=== PATIENT | male | born 2000 ===

== ENCOUNTER 2025-05-29 13:37 | Outpatient (AMB) | payer MEDICARE, MEDICAID, SELFPAY ==
--- NOTE | 2025-05-29 13:40 | A.OFFPC_ITS ---
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 Accompanied by: Self / Same As Patient Allergies No Known Allergies Allergy (Verified 05/29/25 13:55) Tobacco use date assessed: 05/29/25 Dental Screening Dental Screen Date: 05/29/25 Did you have a dental visit in the last 12 months?: No Did you have a dental problem in the last 6 months where you did not have access to dental care?: No Was dental information given to patient?: No HPI collections analyst medication review HPI Details Previous PCP: Exercise Physiologist Last visit: 3-4 years ago Last PE: same Specialist:He was seeing a counselor at [facility], no other specialist OBGYN:n/a Past medical history: Autism, OCD, social anxiety disorder, ADHD Medications: Sertraline 100 mg 1-1/2 tabs daily Family HX: diabetes maternal and paternal grand parents and mother, Graves disease mother and maternal grandmother, maternal grandmother breast cancer x3, grandmothers twin sister has breast cancer, Autism patient and younger brother has autism. 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 Accompanied by his mother. He was previously seeing a counselor at [facility], but the case was closed a few months ago. He is currently taking sertraline, which was continued by the counseling center after he stopped seeing his counselor. The patient reports having a cold for about a week, with symptoms starting around May 24. His current symptoms include an annoying, slightly itchy throat and some upper airway congestion, which he initially treated with DayQuil. The patient reports a family history of diabetes affecting his maternal and paternal grandmothers. There is also a family history of thyroid disease, including Graves' disease in his mother and thyroid cancer in an aunt. Other notable family history includes breast cancer in his maternal grandmother, prostate cancer and colon cancer in his paternal grandfather, and autism, which affects his younger brother and cousins. Health Maintenance - Recommended fasting blood work to asse ss kidney function, liver function, and cholesterol levels. - Counseled on reducing salt intake to m anage blood pressure. - Advised increasing daily water intake from 3 bottles to a minimum of 6 to 8 bottles. - Plan for a complete physical exam at he follow-up visit in seven weeks. Social History - The patient drinks one medium coffee f our days per week on work days. - He typically consumes three bottles of water per day. - The patient's mother is present and in volved in his healthcare. Results [facility] Medical History (Updated 06/01/25 @ 14:08 by CHITRA Lo) Social anxiety disorder OCD (obsessive compulsive disorder) ADHD Autism Family History (Updated 06/01/25 @ 13:53 by CHITRA Lo) Mother Graves disease Maternal Grandmother Breast cancer in situ Diabetes mellitus Graves disease Brother Autism Paternal Grandmother Diabetes mellitus Maternal Aunt Thyroid cancer Paternal Grandfather Prostate cancer Family/Other Autism Social History Alcohol intake: never Patient Tobacco Use Status: Never used Tobacco e-Cigarette/Vaping Use: Never Used Current occupational status: employed Cognitive needs: No Hearing needs: No Vision needs: No Questionnaire PHQ-9 Over the last 2 weeks, how often have you been bothered by any of the following problems? 1. Little interest or pleasure in doing things: not at all 2. Feeling down, depressed, or hopeless: not at all 3. Trouble falling or staying asleep, or sleeping too much: not at all 4. Feeling tired or having little energy: several days 5. Poor appetite or overeating: several days 6. Feeling bad about yourself - or that you are a failure or have let yourself or your family down: not at all 7. Trouble concentrating on things, such as reading the newspaper or watching television: not at all 8. Moving or speaking so slowly that other people could have noticed. Or the opposite - being so fidgety or restless that you have been moving around a lot more than usual: not at all 9. Thoughts that you would be better off or of hurting yourself in some way: not at all Total score: 2 Depression Screening Interpretation: Negative Depression Screening Done: Yes 10033 - PHQ-9 Billing: Yes Source: Developed by Drs. Robert Ramirez, Amira Franklin, Valentin Chávez and colleagues, with an educational brianna from [employer]. Thrive Questionnaire I am a: Patient What is your living situation today?: I have a steady place to live Within the past 12 months, did the food you bought not last and you didn't have the money to get more?: I choose not to answer this question Within the past 12 months, did you worry whether your food would run out before you got money to buy more?: Sometimes True Do you have trouble paying for medicines?: No Do you have trouble getting transportation to medical appointments?: Yes Do you have trouble paying your heating and electricity bill?: I choose not to answer this question Do you have trouble taking care of your child, family member or friend?: No Do you have trouble with day-to-day activities such as bathing, preparing meals, shopping, managing finances, etc.?: No Are you currently unemployed and looking for a job?: Yes Are you interested in more education?: No Please select the resources that you would like help with: None Currently or been in a relationship where the following occur: No concerns reported THRIVE Score: 2 AUDIT C Alcohol Use Questionnaire (AUDIT-C) 1. How often do you have a drink containing alcohol?: Never 2. How many drinks containing alcohol do you have on a typical day when you are drinking?: 1 or 2 3. How often do you have six or more drinks on one occasion?: Never Total Score: 0 JACOBO-7 AMB Questionnaire JACOBO-7 Feeling nervous, anxious, or on edge: 1 = Several days Not being able to stop or control worryin = Several days Worrying too much about different things: 1 = Several days Trouble relaxin = Not at all Being so restless that it is hard to sit still: 0 = Not at all Becoming easily annoyed or irritable: 0 = Not at all Feeling afraid as if something awful might happen: 0 = Not at all Total JACOBO-7 score (0-4 normal; 5-9 mild; 10-14 moderate; 15-21 severe): 3 Source: Developed by Amira Sawant Kurt Kroenke and colleagues, with an educational brianna from [employer]. JACOBO-7 Assessment Billing JACOBO-7 Assessment Tool: JACOBO-7 Assessment 82282 Review of Systems Const Denies headache(s) Eyes Denies loss of vision ENT Denies vertigo, Denies dizziness, Denies headache(s), Reports nasal congestion and Reports sore throat (Mild) Card Denies chest pain, Denies leg edema and Denies lightheadedness Resp Denies cough, Denies hemoptysis and Denies wheezing GI Denies abdominal pain, Denies melena, Denies constipation, Denies diarrhea and Denies vomiting Denies dysuria, Denies urinary frequency and Denies urinary urgency Musc Denies arthralgias, Denies joint swelling, Denies numbness and Denies tingling Neuro Denies Abnormal speech present, Denies behavioral changes, Denies vertigo, Denies dizziness, Denies headache(s), Denies loss of vision, Denies memory loss, Denies numbness and Denies tingling Psych Denies anxiety, Denies behavioral changes, Denies depression, Denies memory loss and Denies panic attacks Ganga/Lymph Denies easy bleeding and Denies easy bruising Aller/Immun Denies wheezing Physical exam (Primary Care) Vital Signs: Last Vital Signs Pulse 105 H 05/29/25 13:45 Resp 18 05/29/25 13:45 BP 142/84 H 05/29/25 13:45 Pulse Ox 97 05/29/25 13:45 Oxygen Delivery Method Room Air 05/29/25 13:45 BMI result Body Mass Index 35.9 Tobacco/Smoking Status: Tobacco use Status Tobacco use date assessed 05/29/25 05/29/25 13:55 Patient Tobacco Use Status Never used Tobacco 05/29/25 13:55 e-Cigarette/Vaping Use Never Used 05/29/25 13:55 PHQ-9: PHQ-9 Score PHQ-9: Total score 2 05/30/25 10:14 Depression Screening Interpretation: Negative Currently or been in a relationship where the following occur: No concerns reported Narrative Physical Exam - Vitals: Blood pressure and heart rate are slightly elevated. - HEENT: Nasal mucosa appears irritated with significant swelling on one side. Cerumen is present in the ear canals. Oropharynx was visualized. - Respiratory: Lungs were auscultated. Const General: healthy appearing, no acute distress, alert and awake Nutritional Appearance: well nourished Orientation/consciousness: oriented to person, oriented to place and oriented to time HENMT Ears: TM's normal bilaterally General nose exam: Abnormal mucous membranes and turbinates present boggy bilateral and erythematous bilateral Eyes Conjunctivae: conjunctivae normal Sclerae: sclerae normal Pupils: Equal, round and reactive pupils present Neck Neck: Yes no lymphadenopathy and Yes no JVD Thyroid: Thyroid normal Carotids: no bruits Resp Effort & Inspection: normal respiratory effort and not tachypneic Auscultation: no crackles, no rales, no rhonchi and no wheezes Cardio Rate: regular rate Rhythm: regular rhythm Heart sounds: no murmurs and normal S1 and S2 GI Palpation (GI): Soft to palpation, nontender, no hepatomegaly and no splenomegaly Auscultation: normal bowel sounds Male General Exam: No lacerations Skin General skin exam: no rashes or lesions noted and dry skin Neuro General: oriented to person, oriented to place and oriented to time Cranial nerves: Yes Equal, round and reactive pupils present Speech: No Abnormal speech present Gait exam (Neuro): Normal gait present Motor exam (neuro): no tremor noted Extrem Right upper extremity: full ROM Left upper extremity: full ROM Right lower extremity: full ROM; no edema Left lower extremity: full ROM; no edema Psych Mental Status: mental status grossly normal Speech and movement: Normal speech and movement present Affect: normal affect Attitude: cooperative Thought process: Normal thought process present Coding Level of Care Code New Pt Level 4 (40517) Diagnoses Encounter to establish care with new provider Z76.89 Allergic rhinitis due to other allergic trigger, unspecified seasonality J30.89 Allergic rhinitis trigger: other Allergic rhinitis seasonality: unspecified Attention deficit hyperactivity disorder (ADHD), unspecified ADHD type F90.9 Attention deficit-hyperactivity disorder type: unspecified Obsessive-compulsive disorder, unspecified type F42.9 Obsessive-compulsive disorder type: unspecified Social anxiety disorder F40.10 Autism F84.0 Additional Codes PHQ-9 - 86980 - PHQ-9 Billing: Yes ([id number]) JACOBO-7 Assessment Billing - JACOBO-7 Assessment Tool: JACOBO-7 Assessment 72073 ([id number]) Time Spent (min) 39 Assessment & Plan Assessment & Plan (1) Encounter to establish care with new provider: Code(s): Z76.89 - Persons encountering health services in other specified circumstances Category: Medical Plan: The patient is establishing care after a several-year lapse. His blood pressure and heart rate were slightly elevated, which may be related to situational anxiety. He was counseled to reduce salt intake and increase water consumption to 6-8 bottles daily. Fasting blood work has been ordered to screen for metabolic and lipid abnormalities. A follow-up appointment is scheduled in seven weeks for a complete physical and to review lab results. (2) Allergic rhinitis: Code(s): J30.9 - Allergic rhinitis, unspecified Category: Medical Qualifiers: Allergic rhinitis trigger: other Allergic rhinitis seasonality: unspecified Qualified Code(s): J30.89 - Other allergic rhinitis Plan: The patient presents with lingering symptoms of a cold, including an annoying throat and nasal congestion, with exam findings of irritated and swollen nasal mucosa. A nasal swab will be performed to test for respiratory pathogens. A prescription for fluticasone nasal spray has been sent to the pharmacy to help reduce nasal inflammation, along with as-needed loratadine (Claritin). (3) ADHD: Code(s): F90.9 - Attention-deficit hyperactivity disorder, unspecified type Category: Medical Qualifiers: Attention deficit-hyperactivity disorder type: unspecified Qualified Code(s): F90.9 - Attention-deficit hyperactivity disorder, unspecified type Plan: Patient completed CBT and was discharged from [facility] and has been doing well (4) OCD (obsessive compulsive disorder): Code(s): F42.9 - Obsessive-compulsive disorder, unspecified Category: Medical Qualifiers: Obsessive-compulsive disorder type: unspecified Qualified Code(s): F42.9 - Obsessive-compulsive disorder, unspecified Plan: Similarly the patient completed CBT Stable Continue sertraline 100 mg (1-1/2 tabs) daily (5) Social anxiety disorder: Code(s): F40.10 - Social phobia, unspecified Category: Medical Plan: Similarly the patient completed CBT Stable Continue sertraline 100 mg (1-1/2 tabs) daily Denies SI/HI (6) Autism: Code(s): F84.0 - Autistic disorder Category: Medical Plan: The patient is autistic, very function and his currently working Plan Discussion Notes I discussed the patient's lingering upper respiratory symptoms and my exam finding of nasal swelling. I have prescribed fluticasone nasal spray and as- needed loratadine to alleviate his symptoms. We will proceed with a nasal swab to test for respiratory infections, which he can complete today. I have ordered baseline fasting blood work to assess his overall health, including kidney and liver function, and cholesterol. I explained the need to fast for 8-12 hours prior to the blood draw. We talked about his slightly elevated blood pressure, and I counseled him on reducing salt intake and incre asing his daily water consumption. We addressed the uncertainty surrounding his sertraline dosage. I instructed him to check his prescription bottle and to contact me if his current presumed dose of 100 mg is not providing adequate symptom relief. We will have a follow-up visit in seven weeks to perform a complete physical and review all test results to create a long-term health plan. Patient Instructions - Go to the lab to get a nasal swab test for your cold symptoms. You can do this today, as you do not need to fast for it. - You will also need to get blood work done. For this test, you must fast for 8 to 12 hours beforehand, meaning nothing to eat or drink except for water or plain black coffee. - I have sent prescriptions to [facility] for a nasal spray (Flonase) and a pill (Claritin) to help with your congestion. The Claritin pill can be taken once a day as needed. - Try to reduce the amount of salt in your diet to help with your blood pressure. - Increase the amount of water you drink to 6 to 8 bottles per day. - Please schedule a follow-up appointment in about seven weeks to have a complete physical exam and go over your test results. Orders: Orders Complete Blood Count Auto Diff 05/30/25 Z00.00 - Encounter for general adult medical examination without abnormal findings Vitamin D 25-OH Total 05/30/25 Z00.00 - Encounter for general adult medical examination without abnormal findings Lipid Panel 05/30/25 Z00.00 - Encounter for general adult medical examination without abnormal findings TSH reflex Free T4 05/30/25 Z00.00 - Encounter for general adult medical examination without abnormal findings SARS-CoV2/FLU/RSV 05/30/25 Z00.00 - Encounter for general adult medical examination without abnormal findings Comprehensive [place]. Panel Fast 05/30/25 Z00.00 - Encounter for general adult medical examination without abnormal findings UA CC w/rflx Micro + Cult 05/30/25 Z00.00 - Encounter for general adult medical examination without abnormal findings Medications: New fluticasone propionate 50 mcg/actuation administer into each nostril 1 spray intranasal BID 16 grams 2RF loratadine (Claritin) 10 mg PO DAILY PRN 90 tabs 3RF allergy symptoms sertraline 150 mg (1.5 x 100 mg) PO DAILY 135 tabs 3RF 90 days
[2025-05-29 13:45] VITALS: BP 142/84; PULSE 105; RESP 18; O2SAT 97; BMI 35.9
== END 2025-05-29 14:29 | disposition home or self-care (01) ==
LOC: HO.HMCH 13:37
DX: Z76.89 Persons encountering health services in other specified circumstances (principal); J30.89 Other allergic rhinitis; F90.9 Attention-deficit hyperactivity disorder, unspecified type; F42.9 Obsessive-compulsive disorder, unspecified; F40.10 Social phobia, unspecified; F84.0 Autistic disorder

== ENCOUNTER → 2025-05-29 13:37 | Outpatient (BNVA) | payer MEDICARE, MEDICAID, SELFPAY | PROVIDERS: PCP Pediatrics | DX: Z76.89 Persons encountering health services in other specified circumstances (principal); F40.10 Social phobia, unspecified; F84.0 Autistic disorder; F42.9 Obsessive-compulsive disorder, unspecified; F90.9 Attention-deficit hyperactivity disorder, unspecified type; J30.89 Other allergic rhinitis; Z13.31 Encounter for screening for depression; Z13.39 Encounter for screening examination for other mental health and behavioral disorders | CPT/HCPCS: 96127; 99202 ==

== ENCOUNTER 2025-05-30 14:53 | Outpatient (REF) | payer MEDICARE, MEDICAID, SELFPAY ==
[2025-05-30 16:32] LABS: Resp Syncy Virus RNA Qual PCR NEGATIVE (Negative); SARS COV2 PCR INHOUSE NEGATIVE (Negative)
--- OUTSIDE RECORDS SUMMARY | 2025-05-30 18:59 | XMS_ITS | Encounter Summary ---
Author Organization [facility] Address [address] [place] [id number] Phone Care Team Providers Care Consultant Intern Name Role Phone Emelia Wu MD Primary Care Provider [phone] Encounter Details Date Type Department Care Team (Late st Contact Info) Description 04/02/2014 Documentation [facility] [place] Family Medicine [address] [place] [address] Family Medicine, Physician [address] [place] [address] Social History Tobacco Use Types Packs/Day Years Used Date Smoking Tobacco: Never Assessed Sex and Gender Information Value Date Recorded Sex Assigned at Not on file Legal Sex Male 5:00 PM EDT Gender Identity Not on file Sexual Orientation Not on file documented as of this encounter Plan of Treatment Not on file documented as of this encounter Visit Diagnoses Not on filedocumented in this encounter Care Teams Consultant Intern Relationship Specialty Start Date End Date Emelia Wu MD [address] [place] [address] DEJA Thorne [address] PCP - General 02/03/17 07/14/22 documented as of this encounter
--- OUTSIDE RECORDS SUMMARY | 2025-05-30 18:59 | XMS_ITS | Encounter Summary ---
Author Organization [facility] Address [address] [place] [id number] Phone Care Team Providers Care Water Carter Name Role Phone Emelia Wu MD Primary Care Provider [phone] Encounter Details Date Type Department Care Team (Late st Contact Info) Description 02/09/2017 Conversion Encounter [facility] [place] [address] [place] [address] Social History Tobacco Use Types Packs/Day Years Used Date Smoking Tobacco: Never Comments:Never smoker Sex and Gender Information Value Date Recorded Sex Assigned at Not on file Legal Sex Male 5:00 PM EDT Gender Identity Not on file Sexual Orientation Not on file documented as of this encounter Plan of Treatment Not on file documented as of this encounter Visit Diagnoses Not on filedocumented in this encounter Care Teams Water Carter Relationship Specialty Start Date End Date Emelia Wu MD [address] [facility] [place] [address] PCP - General 02/03/17 07/14/22 documented as of this encounter
--- OUTSIDE RECORDS SUMMARY | 2025-05-30 18:59 | XMS_ITS | Clinical Summary ---
Author Organization [facility] Address [address] [place] [phone] Phone Care Team Providers Care Business Services Associate Name Role Phone Unavailable Primary Care Provider Unavailabl e Allergies No known active allergies Medications methylphenidate 36 MG CR tablet Take 36 mg by mouth every morning. 0 7 Active sertraline 100 MG tablet TAKE 1 & 1/2 TABLET BY MOUTH EVERY EVENING 0 7 Active fluticasone (Flonase) 50 MCG/ACT nasal sprayIndication s:Snoring Administer 2 sprays into each nostril daily. 1 Units 3 Active Active Problems Problem Noted Date Diagnosed Date Need for case management follow-up 07/31/2020 Overview (07/31/2020): STD screen not done due to national shortage of tests Counseling and coordination of care 06/05/2018 Autism spectrum disorder 05/31/2017 Anxiety 05/31/2017 ADHD (attention deficit hype ractivity disorder), combined type 05/31/2017 Obsessive-compulsive disorder 05/31/2017 Overview (07/31/2020): Showers a lot when he is anxious Immunizations Immunization Administration Dates Next Due DTaP 5 11/26/2003, 1,05/22/2000,03/21,01/19/2000 HPV, Quadrivalent 03/12/2014,04/25/2013,02/10/20 13 Hep A, ped/adol 04/01/2015,03/12/2014 Hep B, ped/adol 08/18/2000,01/19/2000,1999 Hib (PRP-T) 02/19/2001, 0,03/21/2000,01/18 IPV 11/26/2003, 0,03/21/2000,01/18 Influenza Split 02/22/2011 Influenza, injectable, quadrivalent 04/20/2016,1 Influenza, injectable, quadr ivalent, preservative free 03/06/2020,06/06/2019,06/05/2018,05/31,03/12/2014 MMR 11/26/2003,11/21/2000 Meningococcal B Trumenba 12/11/2019,06/06/2019 Meningococcal Conj (Menactra) MCV4P 04/20/2016,0 02/22/2011 Pneumococcal Conjugate 02/19/2001,2000,05/22/2000,03/21 Td (adult) (Tenivac), 5 Lf t etanus toxoid, PF, adsorbed 12/11/2019 Tdap 02/22/2011 Varicella 12/05/2007,11/21/2000 Family History Medical History Relation Name Comments Asthma Brother Terry Obesity Brother Terry Asthma Father [place] Diabetes Maternal Grandfather Hyperlipidemia Maternal Grandfather Obesity Mother Citlali Braga ADD / ADHD Paternal Grandfather Hearing loss Paternal Grandfather Seizures Paternal Grandfather Migraines Paternal Grandmother Obesity Sister Lana Relation Name Status Comments Brother Terry Alive Father Jevon Alive Maternal Grandfather Maternal Grandmother Materna l grandmother: No Family history of No history of Coronary artery disease, Cancer, breast, Sudden /SD under age 55 Mother Citlali Braga Alive Other Family history of Thrombophilia, No family history of Dental caries, Family history of CVA (Stroke), Family history of Heart disease, No family history of Developmental dislocation of hip Paternal Grandfather Paternal Grandmother Sister Lana Alive Sister: Gastrit is Social History Tobacco Use Types Packs/Day Years Used Date Smoking Tobacco: Never Smokeless Tobacco: Never Comments:Never smoker Alcohol Use Standard Drinks/Week Comments No 0 (1 standard drink = 0.6 oz pur e alcohol) Hunger/Food Answer Date Recorded In the last 12 months, did y ou or your family ever eat less than you felt you should because there wasn't enough money for food? No 07/30/2020 Stable Housing Answer Date Recorded Are you worried that in the next 2 months you may not have stable housing? No 07/30/2020 Transportation Concerns Answer Date Rec orded In the last 12 months, have you or your family ever had to go without healthcare because you didn't have a way to get there? No 07/30/2020 Hazards in Home Answer Date Recorded Think about the place you li ve. Do you have problems with any of the following? Pests (mice or roaches), mold, no/not working smoke detectors, water leaks, no window guards. No 2020 Financing Utilities Answer Date Recorde d In the last 12 months, has t he electric, gas, oil, or water company threatened to shut off your services in your home? No 07/30/2020 Safety at Home Answer Date Recorded Are you or your family worried about feeling saf e in your home? No 07/30/2020 Outside Support Answer Date Recorded Do you feel that you need mo re support from other people or programs to help you care for yourself or your family? No 07/30/2020 Understanding Health Concerns Answer Da te Recorded Do you need help understandi ng your or your child's healthcare needs (diagnosis, medications, plan, etc.)? No 07/30/2020 Financing Health Concerns Answer Date R ecorded In the last 12 months, was t here a time when your child needed to see a doctor or get medications or supplies but could not because of cost? No 07/30/2020 Missing School or Work Answer Date Quang rded Did you or your child miss s chool or work because of a health problem that could have been avoided? No 07/30/2020 Sex and Gender Information Value Date Recorded Sex Assigned at Not on file Legal Sex Male 5:00 PM EDT Gender Identity Not on file Sexual Orientation Not on file Last Filed Vital Signs Vital Sign Reading Time Taken Comments Blood Pressure 117/76 07/30/2020 10:16 AM EST Pulse 79 07/30/2020 10:16 AM EST Temperature 35.6 C (96.1 F) 07/30/2020 10:16 AM EST Respiratory Rate - - Oxygen Saturation - - Inhaled Oxygen Concentration - - Weight 104 kg (229 lb 9.6 oz) 07/30/2020 10:16 A M EST Height 172.7 cm (5' 8 ) 07/30/2020 10:16 AM EST Body Mass Index 34.91 07/30/2020 10:16 AM EST Plan of Treatment Health Maintenance Due Date Last Done Comments Influenza Vaccines (#1) 2025 03/06/20 20, 06/06/2019, 06/05/2018, Additional history exists COVID-19 Vaccine (2024-2 6 season) 2025 06/15/2021, 08/26/2020 DTaP,Tdap,and Td Vaccines (8 - Td or Tdap) 12/10/2029 12/11/2019, 02/22/2011, 11/26/2003, Additional history exists Hepatitis B Vaccines Completed 08/18/2000, 01/19/2000, 1999 HIB Vaccines Completed 02/19/2001, 04/27, 03/21/2000, Additional history exists Pneumococcal Vaccine Completed 02/19/2001, 08/18/2000, 05/22/2000, Additional history exists IPV Vaccines Completed 11/26/2003, 04/27, 03/21/2000, Additional history exists MMR Vaccines Completed 11/26/2003, 11/21/2000 Varicella Vaccines Completed 12/05/2007, 11/21/2000 HPV Vaccines Completed 03/12/2014, 03/28, 02/09/2013 Hepatitis A Vaccines Completed 04/01/2015, 03/12/20 14 Meningococcal Vaccine Completed 04/20/2016, 011 Men B Vaccine Completed 12/11/2019, 06/06/2019
--- OUTSIDE RECORDS SUMMARY | 2025-05-30 18:59 | XMS_ITS | Encounter Summary ---
Author Organization [facility] Address [address] [place] [phone] Phone Care Team Providers Care Manager Solution Name Role Phone Emelia Wu MD Primary Care Provider [phone]- [phone] Encounter Details Date Type Department Care Team (Late st Contact Info) Description 04/02/2014 Documentation [facility] [place] Family Medicine [address] [place] [address] Family Medicine, Physician [address] [place] [address] Social History Tobacco Use Types [...] on filedocumented in this encounter Care Teams Manager Solution Relationship Specialty Start Date End Date Emelia Wu MD [address] [place] [address] DEJA Thorne [id number] PCP - General 02/03/17 07/14/22 documented as of this encounter
--- OUTSIDE RECORDS SUMMARY | 2025-05-30 18:59 | XMS_ITS | Encounter Summary ---
Author Organization [facility] Address [address] [place] [phone] Phone Care Team Providers Care Slurry Tank Operator Name Role Phone Emelia Wu MD Primary Care Provider [phone] Encounter Details Date Type Department Care Team (Late st Contact Info) Description 11/06/2013 Documentation [facility] [place] [address] [place] [address] Family Medicine, Physician [address] [place] [address] Social History Tobacco Use Types [...] on filedocumented in this encounter Care Teams Slurry Tank Operator Relationship Specialty Start Date End Date Emelia Wu MD [address] [place] [address] DEJA Thorne [phone] PCP - General 02/03/17 07/14/22 documented as of this encounter
== END 2025-05-30 14:54 | disposition home or self-care (01) ==
LOC: HO.LAB 14:53
DX: Z00.00 Encounter for general adult medical examination without abnormal findings (principal)
CPT/HCPCS: 87637

== ENCOUNTER 2025-06-04 10:43 | Outpatient (REF) | payer MEDICARE, MEDICAID, SELFPAY ==
[2025-06-04 10:56] LABS: MANUAL DIFF FLAG NO
[2025-06-04 11:05] LABS: Hematocrit 47.3 % (42.0-52.0); Hemoglobin 14.8 g/dl (14.0-18.0); Imm Gran Abs Auto 0.06 X10*3/uL (0.00-0.03); Imm Gran Pct Auto 0.6 % (0.0-0.4); Lymphocytes Absolute Auto 2.6 X10*3/uL (1.2-4.9); Mean Corpuscular HGB Conc 31.3 g/dl (31.0-36.0); Mean Corpuscular Hemoglobin 22.5 pg (27.0-33.0); Mean Corpuscular Volume 71.8 fL (80.0-98.0); NRBC Abs Auto 0.000 X10*3/uL (0.0-0.012); NRBC Pct Auto 0.0 /100WBC (0.0-0.2); Platelet Count 345 X10*3/uL (160-400); Red Blood Count 6.59 X10*6/uL (4.60-5.80); White Blood Count 10.1 X10*3/uL (4.8-10.8)
[2025-06-04 11:46] LABS: Alanine Aminotransferase 114 U/L (0-40); Albumin Level 4.6 g/dL (3.5-5.0); Alkaline Phosphatase 77 U/L (39-117); Anion Gap 8 (12-20); Aspartate Amino Transferase 58 U/L (5-37); Blood Urea Nitrogen 13 mg/dL (9-16); Calcium 8.8 mg/dL (8.4-10.2); Carbon Dioxide 32 mmol/L (22-29); Chloride 103 mmol/L (96-108); Cholesterol 150 mg/dL (<200); Estimated Glomerular Filt Rate > 60; HDL Cholesterol 45 mg/dL (>40); Potassium 4.2 mmol/L (3.3-5.1); Sodium 139 mmol/L (135-145); Total Protein 7.6 g/dL (6.5-8.0); Triglycerides 109 mg/dL (<150)
[2025-06-04 12:11] LABS: Appearance Urine Clear; Glucose Urine UA Negative (Negative); PH 7.5 (5.0-9.0); Specific Gravity - Urine 1.020 (1.005-1.025); UMIC TRIGGER UACC YES
== END 2025-06-04 10:44 | disposition home or self-care (01) ==
LOC: HO.LAB 10:43
DX: Z00.00 Encounter for general adult medical examination without abnormal findings (principal)
CPT/HCPCS: 36415; 80053; 80061; 81001; 81003; 82306; 84443; 85025